=== PATIENT | female | born 1950 | race Caucasian/White ===

== ENCOUNTER → 2020-06-09 | Outpatient (CLI) | payer MEDICARE, OTHER ==
[~2020-06-09] MED LIST: ANORO ELLIPTA1 EACH INH; BENADRYL 25MG C25 MG PO; COREG 25MG TAB25 MG PO; ECOTRIN81 MG PO; FLUZONE QU60 MCG/018 IM; GLUCOPHAGE 500500 MG PO; GLUCOVANCE 5-51 EACH PO; KRILL OIL500 MG PO; LIPITOR TAB 1010 MG PO; PROAIR HFA8.5 GM INH; SYNTHROID200 MCG PO; TOUJEO MAX300 UNIT/1 SQ; TRULICITY0.75 MG/0. SQ; ZYVOX IV 6600 MG/300 INJ
== END ==
LOC: KOH-I 15:30
DX: R27.0 Ataxia, unspecified (principal); E11.9 Type 2 diabetes mellitus without complications; E11.42 Type 2 diabetes mellitus with diabetic polyneuropathy; R42 Dizziness and giddiness
CPT/HCPCS: 70450

== ENCOUNTER → 2020-12-09 | Outpatient (CLI) | payer MEDICARE, OTHER | LOC: EXRD 11:39 | DX: J44.1 Chronic obstructive pulmonary disease with (acute) exacerbation (principal); J98.8 Other specified respiratory disorders; R91.8 Other nonspecific abnormal finding of lung field | CPT/HCPCS: 71046 ==

== ENCOUNTER → 2021-01-27 | Outpatient (CLI) | payer MEDICARE, OTHER | LOC: KOH-I 14:00 | DX: R91.1 Solitary pulmonary nodule (principal); R91.8 Other nonspecific abnormal finding of lung field; K76.89 Other specified diseases of liver; R93.2 Abnormal findings on diagnostic imaging of liver and biliary tract | CPT/HCPCS: 71250 ==

== ENCOUNTER → 2021-03-10 | Outpatient (CLI) | payer MEDICARE, OTHER | LOC: HEART 5 10:29 | DX: R06.02 Shortness of breath (principal); R05.9 Cough, unspecified | CPT/HCPCS: 94060; 94729 ==